=== PATIENT | female | born 1960 | race Caucasian/White ===

== ENCOUNTER 2016-06-23 08:39 | Day surgery (SDC) | payer BC ==
[~2016-06-23] VITALS: Ht 157.5 cm; Wt 70.6 kg
[~2016-06-23 08:39] MED LIST: CEFUROXIME500 MG PO; CLARITIN-D 12 H1 TAB PO; COLACE-DPS100 MG PO; GAVISCON DPS1 TAB PO; HYDROCODONE 7.7.5 MG PO; NEXIUM40 MG PO; OMEGA-3 DPS1000 MG PO; VALIUM DPS PO; ZOCOR DPS40 MG PO
--- NOTE | 2016-07-22 10:18 | OR ---
ADMIT: 06/23/2016 RM/LOC: [facility] MR#: [id number] [facility]#: [id number] [address] [address] [address] [place] [address] Operative/Delivery Room Report SEX: F AGE: 56 : 1960 SURGERY DATE: 06/23/2016 SURGEON: Brian Dominguez MD RECRUITING AND SELECTION CONSULTANT: Corky Alcazar MD PREPROCEDURE DIAGNOSIS: Medically refractory gastroesophageal reflux disease. POSTPROCEDURE DIAGNOSIS: Medically refractory gastroesophageal reflux disease. PROCEDURE: Laparoscopic Sergio fundoplication. INDICATIONS: The patient is a 56-year-old, who presents with medically refractory gastroesophageal reflux disease, who presents for laparoscopic Sergio fundoplication. DESCRIPTION OF PROCEDURE: The patient was taken to the operative room, general endotracheal anesthesia was induced. The patient's abdomen was prepped and draped in normal sterile fashion. The case was begun by making a transverse, supraumbilical 5 mm skin incision using #11 blade. A retractable 5-mm port was placed within the abdomen. The abdomen was insufflated with CO2 to an intraabdominal pressure of 15 mmHg. A camera was placed showing no bowel or vascular injury. Two right-sided 5 mm subcostal ports were placed under direct vision. Two left subcostal ports were placed under direct vision, one was an 11 mm, the other was 5 mm. We placed a Frankie arm on the bed, placed a liver retractor within the abdomen. The left lobe of the liver was retracted cephalad or rather anteriorly. Using Harmonic scalpel dissection, I divided the phrenoesophageal membrane, the gastrohepatic ligament, and short gastric vessels. Continued this dissection up well into the mediastinum sparing the esophagus until we had a nice intraabdominal length of tensionless esophagus. I closed down the hiatal defect with three interrupted 0 Tycron sutures starting at the diaphragmatic ilya and working my way up anteriorly. We left a nice room for the hiatus where I did not feel like we tightened this down. We did not over tighten this opening. I then wrapped the fundus through the retroesophageal window, did finn dooley ADMIT: 06/23/2016 RM/LOC: [facility] MR#: [id number] [address] [id number] [address]CON [address] [place] [address] Operative/Delivery Room Report SEX: F AGE: 56 : 1960 maneuver, and created a nice 3 cm loose to 360 degree Sergio fundoplication incorporating each fundic lip and incorporating the anterior esophageal musculature to create this wrap. We took pictures before and after the closure and the wrap. There was no bleeding noted. A 0.5% Marcaine injected subdermally, subfascially for postoperative analgesia. The liver retractor was removed. We closed the left upper quadrant 11 mm fascial port site with an interrupted 0 Polysorb suture passer. The air was desufflated. The port sites removed. The skin sites were closed with interrupted 4-0 Vicryl subcuticular skin stitches. Wounds were cleaned and dried. Steri-Strips and Tegaderms were applied over the top. Needle, sponge, and instrument counts were correct at the end of the case. The patient was wheeled to recovery room in good condition. Brian Dominguez MD/ moon JOB #: [id number] CC: Brian Dominguez, Attending Physician Analisa Vega, Family Physician
== END 2016-06-23 16:04 | disposition home or self-care (01) ==
LOC: SSS 08:39
PROC: 0DV44ZZ Restriction of Esophagogastric Junction, Percutaneous Endoscopic Approach (ICD-10-PCS; principal; 2016-06-23)
DX: K21.0 Gastro-esophageal reflux disease with esophagitis (principal); K44.9 Diaphragmatic hernia without obstruction or gangrene; K57.30 Diverticulosis of large intestine without perforation or abscess without bleeding; F17.200 Nicotine dependence, unspecified, uncomplicated; Z79.899 Other long term (current) drug therapy; Z98.51 Tubal ligation status; Z80.0 Family history of malignant neoplasm of digestive organs; Z98.890 Other specified postprocedural states